=== PATIENT | female | born 1970 | race American Indian/Alaskan Native ===

== ENCOUNTER 2019-06-17 12:27 | Emergency (ER) | payer OTHER ==
[2019-06-17 13:09] VITALS: BP 167/72
--- NOTE | 2019-06-17 13:12 | Emergency Department Report ---
Upper Respiratory HPI - HPI Chief Complaint: Upper Respiratory Infection Stated Complaint: COUGHING/DIZZY/SNEEZING Time Seen by Provider: 06/17/19 13:07 Duration: 1 week URI Symptoms: Rhinorrhea: Yes, Sore Throat: No, Ear Pain: No, Cough: Yes, Shortness of Breath: No, Sick Contacts: No, Unable to Take Fluids: No, Urine Output Abnormal: No, Listless Behavior: No Other History: This is a 49-year-old female nontoxic well in appearnce with no signs of distress presents with sneezing and dry nonproductive cough x1 week. Patient denies any chest pain, shortness of breathe, fever, chills, nausea, vomiting, headache, stiff neck, abdominal pain, numbness or tingling. Patient denies any recent travels, long car rides, or recent hospital stays. Denies any allergies or significant PMH. Allergies to pollen. ED Review of Systems ROS: Stated complaint: COUGHING/DIZZY/SNEEZING Other details as noted in HPI Constitutional: denies: chills, fever Eyes: denies: eye pain, eye discharge, vision change ENT: congestion. denies: ear pain, throat pain Respiratory: cough. denies: shortness of breath, wheezing Cardiovascular: denies: chest pain, palpitations Endocrine: no symptoms reported Gastrointestinal: denies: abdominal pain, nausea, diarrhea Genitourinary: denies: urgency, dysuria, discharge Musculoskeletal: denies: back pain, joint swelling, arthralgia Skin: denies: rash, lesions Neurological: denies: headache, weakness, paresthesias Psychiatric: denies: anxiety, depression Hematological/Lymphatic: denies: easy bleeding, easy bruising ED Past Medical Hx - Past Medical History Previous Medical History?: No - Surgical History Past Surgical History?: Yes Additional Surgical History: knee surgery. fibroids removed. Achilles tendon ED Bronchiolitis Physical Exam - Exam General: Vital signs noted. No distress. Alert and acting appropriately. HEENT: No Pharyngeal Erythema, No Conjuctival Injection, No Dry Mucous Membranes, No Rhinorrhea Ear: Neither TM Bulge, Neither TM Erythema, Neither EAC Discharge Neck: No Adenopathy, No Rigidity Lungs: Yes Clear Lung Sounds, Yes Good Air Exchange, No Wheezes, No Stridor, No Cough, No Nasal Flaring, No Retractions, No Use of Accessory Muscles Heart: Yes Regular, No Murmur Abdomen: Yes Normal Bowel Sounds, No Tenderness, No Peritoneal Signs Skin: No Rash, No Eczema Neurologic: Alert and oriented, no deficits. Musculoskeletal: Unremarkable. ED Physical Exam - General Limitations: No Limitations ED Course - Reevaluation(s) Reevaluation #1: 06/17/19 13:09 Patient is speaking in full sentences with no signs of distress noted. ED Medical Decision Making - Medical Decision Making 49-year-old female that presents with allergic rhinnitis symptoms. Patient is stable and was examined by me. Patient does not meet COVID-19 precautions but patient was educated and instructed to self quaratine if symptoms do occur. Patient was educated on OTC suppurative care and medications. Vital signs are stable. Patient was instructed to Follow-up with a primary care doctor in 3-5 days or if symptoms worsen and continue return to emergency room as soon as possible. At time of discharge, the patient does not seem toxic or ill in appearance. No acute signs of distress noted. Patient agrees to discharge treatment plan of care. No further questions noted by the patient. Critical care attestation.: If time is entered above; I have spent that time in minutes in the direct care of this critically ill patient, excluding procedure time. ED Disposition Clinical Impression: Allergic rhinitis Qualifiers: Allergic rhinitis trigger: pollen Allergic rhinitis seasonality: seasonal Qualified Code(s): J30.1 - Allergic rhinitis due to pollen Disposition: MED SCREENING EXAM-LEFT Is pt being admited?: No Does the pt Need Aspirin: No Condition: Stable Additional Instructions: Follow-up with a primary care doctor in 3-5 days or if symptoms worsen and continue return to emergency room as soon as possible. Referrals: RIMA ROLLE MD [Referring] - 3-5 Days NADEGE HAN MD [Staff Physician] - 3-5 Days [facility] [Outside] - 3-5 Days Forms: Work/School Release Form(ED)
== END 2019-06-17 13:59 | disposition left against medical advice (07) ==
LOC: ED 12:27
DX: J30.9 Allergic rhinitis, unspecified (principal)
CPT/HCPCS: 99281

== ENCOUNTER 2021-12-02 04:42 | Emergency (ER) | payer OTHER ==
[2021-12-02] MEDS ORDERED: dilTIAZem 25 MG/5 ML INJ IV ONE (05:47)
--- NOTE | 2021-12-02 05:49 | XRay Report ---
Chest single view INDICATION: Chest pain IMPRESSION: Cardiomegaly with mild bilateral interstitial edema. Signer Name: Dusty Baldwin MD Signed: 12/02/2021 5:45 AM Workstation Name: [email or web address]
[2021-12-02 06:24] LABS: Basophils # (Auto) 0.1 K/mm3 (0.0-0.1); Basophils % (Auto) 0.9 % (0.0-1.8); Eosinophils # (Auto) 0.3 K/mm3 (0.0-0.4); Eosinophils % (Auto) 4.7 % (0.0-4.3); Hematocrit 27.5 % (30.3-42.9); Hemoglobin 8.6 gm/dl (10.1-14.3); Lymphocytes # (Auto) 1.3 K/mm3 (1.2-5.4); Lymphocytes % (Auto) 23.4 % (13.4-35.0); Mean Corpuscular HGB Conc 31 % (30-34); Mean Corpuscular Volume 66 fl (79-97); Monocytes # (Auto) 0.4 K/mm3 (0.0-0.8); Monocytes % (Auto) 6.9 % (0.0-7.3); Platelet Count 170 K/mm3 (140-440); Red Blood Count 4.19 M/mm3 (3.65-5.03); Red Cell Distribution Width 22.9 % (13.2-15.2)
[2021-12-02 06:32] LABS: INR 0.96 (0.87-1.13)
[2021-12-02 06:33] LABS: Partial Thromboplastin Time 28.9 Sec. (24.2-36.6)
[2021-12-02 06:36] LABS: Blood Urea Nitrogen 6 mg/dL (7-17); Calcium 9.2 mg/dL (8.4-10.2); Hemolysis Index 12
[2021-12-02 06:42] LABS: BUN/Creatinine Ratio 10; Creatine Kinase MB < 1.0 ng/mL (0.0-4.0)
[2021-12-02 07:06] LABS: Free T4 (Free Thyroxine) 0.85 ng/dL (0.76-1.46)
[2021-12-02 07:19] LABS: Amphetamine Screen,Urine Negative; Benzodiazepines Screen,Urine Negative; Cocaine Screen,Urine Negative; Methadone Screen,Urine Negative; Opiate Screen,Urine Negative
[2021-12-02 07:31] LABS: Cannabinoid Screen,Urine Positive
--- NOTE | 2021-12-02 13:19 | Emergency Department Report ---
ED General Adult HPI - General Chief complaint: Chest Pain Stated complaint: ADRYAN Time Seen by Provider: 12/02/21 08:30 Source: patient Mode of arrival: Ambulatory Limitations: No Limitations - History of Present Illness Initial comments: This 51-year-old female symptoms of tiredness/fatigue started on Monday about 5 days ago progressively getting worse. Because of the tiredness patient decided to take off from work on Monday and Monday. She however woke up this morning with heart palpitation associated with nausea without emesis. When asked spec ifically patient also reported chronic anemia in the past. She did not report any blood in stool or urine. She said she was started on iron pill in the past but stopped taking it because of the side effects. No fever or chills reported. Patient also mentions some chest pressure. And radiation of symptoms to her both right and left arm. No other modifying or associated factors reported. - Related Data Previous Rx's Medication Instructions Recorded Last Taken Type Apixaban [Eliquis] 2.5 mg PO DAILY 30 Days #30 tab NS 12/02/21 Unknown Rx Metoprolol [Lopressor TAB] 50 mg PO BID 30 Days #60 tablet NS 12/02/21 Unknown Rx Allergies Allergy/AdvReac Type Severity Reaction Status Date / Time No Known Allergies Allergy Unverified 06/17/19 13:08 ED Review of Systems ROS: Stated complaint: ADRYAN Other details as noted in HPI Comment: All other systems reviewed and negative Constitutional: weakness Respiratory: shortness of breath Cardiovascular: chest pain, palpitations ED Past Medical Hx - Surgical History Additional Surgical History: knee surgery. fibroids removed. Achilles tendon - Social History Smoking Status: Never Smoker Substance Use Type: Marijuana - Medications Home Medications: Home Medications Medication Instructions Recorded Confirmed Last Taken Type Apixaban [Eliquis] 2.5 mg PO DAILY 30 Days #30 tab NS 12/02/21 Unknown Rx Metoprolol [Lopressor TAB] 50 mg PO BID 30 Days #60 tablet NS 12/02/21 Unknown Rx ED Physical Exam - General Limitations: No Limitations General appearance: alert, in no apparent distress, obese - Head Head exam: Present: atraumatic, normal inspection - Eye Eye exam: Present: normal appearance Pupils: Present: normal accommodation - ENT ENT exam: Present: normal exam, normal orophraynx, mucous membranes moist - Neck Neck exam: Present: normal inspection, full ROM. Absent: tenderness - Respiratory Respiratory exam: Present: normal lung sounds bilaterally. Absent: respiratory distress, accessory muscle use - Cardiovascular Cardiovascular Exam: Present: tachycardia (a-fib), normal heart sounds - GI/Abdominal GI/Abdominal exam: Present: soft, normal bowel sounds. Absent: distended, tenderness - Extremities Exam Extremities exam: Present: normal inspection, full ROM, normal capillary refill. Absent: tenderness, pedal edema ED Course Vital Signs 12/02/21 12/02/21 12/02/21 04:48 05:28 05:30 Temperature 98.1 F Pulse Rate 82 165 H 167 H Respiratory 16 20 15 Rate Blood Pressure 154/94 125/74 O2 Sat by Pulse 96 100 100 Oximetry 12/02/21 12/02/21 12/02/21 05:46 06:00 06:12 Temperature Pulse Rate 167 H 166 H 189 H Respiratory 24 16 Rate Blood Pressure 115/51 118/77 112/63 O2 Sat by Pulse 100 Oximetry 12/02/21 12/02/21 12/02/21 06:16 06:30 06:46 Temperature Pulse Rate 148 H 123 H 137 H Respiratory 32 H 18 27 H Rate Blood Pressure 112/63 112/63 113/69 O2 Sat by Pulse 100 99 100 Oximetry 12/02/21 12/02/21 12/02/21 07:00 07:16 07:30 Temperature Pulse Rate 113 H 154 H 147 H Respiratory 25 H 16 11 L Rate Blood Pressure 113/69 134/68 117/62 O2 Sat by Pulse 100 99 100 Oximetry 12/02/21 12/02/21 12/02/21 07:46 08:00 08:16 Temperature Pulse Rate 145 H 133 H 134 H Respiratory 24 15 27 H Rate Blood Pressure 122/68 134/68 116/72 O2 Sat by Pulse 100 100 100 Oximetry 12/02/21 12/02/21 12/02/21 08:30 08:46 09:00 Temperature Pulse Rate 150 H 130 H 127 H Respiratory 14 18 17 Rate Blood Pressure 116/72 129/81 133/87 O2 Sat by Pulse 100 100 99 Oximetry 12/02/21 12/02/21 12/02/21 09:16 09:46 10:00 Temperature Pulse Rate 132 H 128 H 77 Respiratory 17 21 27 H Rate Blood Pressure 130/85 128/95 128/95 O2 Sat by Pulse 100 100 100 Oximetry 12/02/21 12/02/21 12/02/21 10:16 10:30 10:46 Temperature Pulse Rate 71 67 66 Respiratory 17 17 29 H Rate Blood Pressure 119/68 119/68 108/75 O2 Sat by Pulse 100 100 100 Oximetry 12/02/21 12/02/21 12/02/21 11:00 11:16 11:30 Temperature Pulse Rate 82 67 72 Respiratory 15 22 12 Rate Blood Pressure 108/75 107/83 107/83 O2 Sat by Pulse 100 100 100 Oximetry 12/02/21 12/02/21 12/02/21 11:46 12:00 12:16 Temperature Pulse Rate 68 70 66 Respiratory 29 H 26 H 25 H Rate Blood Pressure 125/79 125/79 133/76 O2 Sat by Pulse 100 100 100 Oximetry 12/02/21 12/02/21 12/02/21 12:30 12:46 13:30 Temperature Pulse Rate 76 73 68 Respiratory 11 L 16 14 Rate Blood Pressure 133/76 127/76 138/67 O2 Sat by Pulse 100 100 100 Oximetry - Reevaluation(s) Reevaluation #1: 12/02/21 13:34 Cardiology paged-- Reevaluation #2: 12/02/21 14:03 given Metoprolol 50 mg PO x 1-- 12/02/21 14:03 Pt continue to denies any blood in her either urine or blood and that the anemia is chronic. - Consultations Consultation #1: 12/02/21 14:00 Dr. Rockwell the consulted dump grader ct who recommend given pain 50 mg Metoprolol x 1 while in the ED and d/c home on it BID and Eliquis 2.5 mg and a close follow up with her PCP and GI specialist and to have patient follow up with him at the clinic within the next 1 week for complete workup including cardiac EcHO. Pt reassured. ED Medical Decision Making - Lab Data Result diagrams: 12/02/21 05:33 12/02/21 05:33 - EKG Data -: EKG Interpreted by Me - EKG Data 12/02/21 13:19 Noted with atrial fibrillation at the rate of [address] elevation or depression in this abnormal ECG. 12/02/21 14:11 This patient second EKG after the break of the atrial fibrillation was noted to be normal sinus rhythm at a rate of [address] elevation or depression in this borderline ECG. - Medical Decision Making Here with palpitation associated with generalized fatigue x 5 days and with noted a-fib rvr--this is likely can be the cause of fatigue but differential could be and not limited to symptomatic anemia, myocardial infarction, pulmonary embolism, anxiety, CVA especially posterior stroke or thyroid abnormality--in order to rule those out I will go ahead and order routine cardiopulmonary work- up that include troponin, EKG, chest x-ray, BNP, CKMB, and CBC, CMP, Urinalysis and thyroid panel for any correctable infectious process or electrolyte abnormality as a cause. In the meantime will give ivf ns 1L bolus for hydration as most are dehydrated. Pt given Cardizem 20 mg IV x 1 with improvement in a-fib rate from 145 bpm to 117 bpm -- however while waiting for the patients lab above she got up to urinate and by the time she returned she was in normal sinus-- with rate less than 100 bpm-- Also unsure how long this patient has been in a-fib so Lead Nitrate Processor will be consulted for disposition. Critical care attestation.: If time is entered above; I have spent that time in minutes in the direct care of this critically ill patient, excluding procedure time. ED Disposition Clinical Impression: Atrial fibrillation with RVR A-fib Qualifiers: Atrial fibrillation type: unspecified Qualified Code(s): I48.91 - Unspecified atrial fibrillation Fatigue Qualifiers: Fatigue type: unspecified Qualified Code(s): R53.83 - Other fatigue Disposition: 01 HOME / SELF CARE / HOMELESS Is pt being admited?: No Does the pt Need Aspirin: No Condition: Stable Instructions: Weakness, [id number], Atrial Fibrillation, [id number], Preventing Atrial Fibrillation-Related Stroke Additional Instructions: It is very important that you continue to take your new heart medicine metoprolol twice a day as prescribed It is also equally important that you call and schedule follow-up with your primary doctor/aircraft fueler for further evaluation of your anemia to be sure is not from internal bleeding. Also please call and schedule a follow-up with Dr. Rockwell your dump grader for further evaluation and your irregular heartbeat. And please do not forget to take your blood thinner medicine as prescribed. Please do not hesitate to call or return to emergency room if your symptoms worsen Prescriptions: Apixaban [Eliquis] 2.5 mg PO DAILY 30 Days #30 tab NS Metoprolol [Lopressor TAB] 50 mg PO BID 30 Days #60 tablet NS Referrals: JENNIFER ROCKWELL MD [Staff Physician] - 3-5 Days CARRIE OROZCO MD [Staff Physician] - 3-5 Days PRIMARY CARE, [Primary Care Provider] - 3-5 Days Time of Disposition: 14:08
[2021-12-02 13:42] VITALS: BP 138/67
[2021-12-02] MEDS ORDERED: METOPROLOL TARTRATE 50 MG TAB PO ONE (14:09)
--- NOTE | 2021-12-03 13:31 | Electrocardiograph Report ---
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
--- NOTE | 2021-12-03 13:35 | Electrocardiograph Report ---
[facility] Test Date: 2021-12-02 Test Time: 13:44:27 Pat Name: KELTON KAYE Department: Room: Gender: F Cascade Operator: AF : 1970 Requested By: GILBERTO SMITH Order Number: [id number] Reading MD: Savanna Rockwell Measurements Intervals [place] Rate: 67 P: 64 KS: 170 QRS: -20 QRSD: 103 T: 52 QT: 439 QTc: 463 Interpretive Statements Sinus rhythm Low voltage QRS Compared to ECG 12/02/2021 04:54:54 Sinus rhythm has replaced atrial fibrillation Electronically Signed On 12-03-2021 13:35:20 EDT by Savanna Rockwell
== END 2021-12-02 14:20 | disposition home or self-care (01) ==
LOC: ED 04:42
DX: R53.83 Other fatigue (principal); I48.20 Chronic atrial fibrillation, unspecified; Z79.899 Other long term (current) drug therapy
CPT/HCPCS: 36415; 71045; 80048; 80307; 82550; 82553; 83735; 83880; 84439; 84443; 84484; 85025; 85610; 85730; 93005; 96374; 99284; J3490